=== PATIENT | female | born 1985 | race Caucasian/White ===

== ENCOUNTER 2018-01-19 17:14 | Emergency (ER) | payer OTHER ==
[2018-01-19 17:26] VITALS: TEMP 99; O2SAT 100
--- NOTE | 2018-01-19 18:12 | C.PDOC ---
History Of Present Illness 32 y/o female presents to the ED complaining of intermittent palpitations since yesterday. She started taking Protonix 2 days ago for reflux, and states she began to feel her heart race shortly after. The symptoms would come and go spontaneously the first day. This morning, symptoms had improved so patient took Protonix again around 2:00pm, and states her heart rate has been elevated since, prompting her to come in to the ED. Otherwise patient denies any CP, SOB , [place], dizziness, headaches, blurred/double vision, or other associated symptoms. Patient reports PMHx of anxiety and admits to having prior episodes of palpitations whenever she is feeling anxious. Time Seen by Provider: 01/19/18 17:42 Chief Complaint (Nursing): Palpitations History Per: Patient History/Exam Limitations: no limitations Onset/Duration Of Symptoms: Intermittent Episodes Current Symptoms Are (Timing): Still Present Quality Of Symptoms: Rapid Heart Rate Exacerbating Factor(s): Pos: Recent Change In Medication Past Medical History Reviewed: Historical Data, Nursing Documentation, Vital Signs Vital Signs: Last Vital Signs Temp 99 F 01/19/18 17:19 Pulse 130 H 01/19/18 19:26 Resp 18 01/19/18 19:26 BP 129/82 01/19/18 19:26 Pulse Ox 100 01/19/18 19:26 - Medical History PMH: GERD Family History: States: No Known Family Hx - Social History Hx Tobacco Use: No Hx Alcohol Use: No Hx Substance Use: No - Immunization History Hx Tetanus Toxoid Vaccination: No Hx Influenza Vaccination: No Hx Pneumococcal Vaccination: No Review Of Systems Except As Marked, All Systems Reviewed And Found Negative. Constitutional: Negative for: Fever Eyes: Negative for: Vision Change Cardiovascular: Positive for: Palpitations. Negative for: Chest Pain Respiratory: Negative for: Shortness of Breath, SOB with Excertion Gastrointestinal: Positive for: Vomiting (reflux exacerbation). Negative for: Abdominal Pain, Diarrhea Neurological: Negative for: Weakness, Numbness, Incoordination, Change in Speech , Headache, Dizziness Physical Exam - Physical Exam Appears: Non-toxic, No Acute Distress Skin: Normal Color, Warm, Dry Head: Atraumatic, Normacephalic Eye(s): bilateral: Normal Inspection, PERRL, EOMI Nose: Normal Oral Mucosa: Moist Neck: Normal ROM, Supple Chest: Symmetrical Cardiovascular: Rhythm Regular (and tachycardic), No Murmur Respiratory: Normal Breath Sounds, No Accessory Muscle Use, No Wheezing, Other ( NARD) Gastrointestinal/Abdominal: Soft, No Tenderness, No Distention Extremity: Bilateral: Atraumatic, Normal Color And Temperature, Normal ROM Pulses: Left Radial: Normal, Right Radial: Normal Neurological/Psych: Oriented x3, Normal Speech, Normal Cranial Nerves Gait: Steady ED Course And Treatment - Laboratory Results Result Diagrams: 01/19/18 18:27 01/19/18 18:27 ECG: Interpreted By Me ECG Rhythm: Sinus Tachycardia ECG Interpretation: Abnormal Rate From EC O2 Sat by Pulse Oximetry: 100 (RA) Pulse Ox Interpretation: Normal Medical Decision Making Medical Decision Making: Impression: Palpitations, Recent med change Initial Plan: --EKG --Troponin I --Thyroid panel --CMP --CBC --D dimer --Urine preg --Chest X-Ray --IV fluids Disposition Counseled Patient/Family Regarding: Studies Performed, Diagnosis, Need For Followup - Disposition Referrals: YOUR,PMD [Other] Disposition: HOME/ ROUTINE Disposition Time: 19:43 Condition: GOOD Instructions: Sinus Tachycardia (DC) Forms: [employer] (Russian) - Clinical Impression Clinical Impression: Sinus tachycardia, Elevated serum free T4 level - Scribe Statement The provider has reviewed the documentation as recorded by the Sandhyaibviktoriya Kamara Provider Attestation: All medical record entries made by the Scribe were at my direction and personally dictated by me. I have reviewed the chart and agree that the record accurately reflects my personal performance of the history, physical exam, medical decision making, and the department course for this patient. I have also personally directed, reviewed, and agree with the discharge instructions and disposition.
[2018-01-19] MEDS ORDERED: Sodium Chloride 0.9% 1,000 ML IV ONE (18:13)
[2018-01-19] MEDS ORDERED: Sodium Chloride 0.9% 1,000 ML ONE (18:32)
[2018-01-19 18:34] LABS: BASO % 0.3 % (0.0-2.0); EOS % 0.3 % (0.0-4.0); HEMOGLOBIN 12.3 g/dL (11.0-16.0); LYMPH # 0.6 K/uL (1.0-4.3); LYMPH % 13.8 % (20.0-40.0); MEAN CELL VOLUME 86.6 fL (81.0-99.0); MEAN CORPUSCULAR HEMOGLOBIN 28.7 pg (27.0-31.0); MEAN CORPUSCULAR HGB CONC 33.1 g/dL (33.0-37.0); MEAN PLATELET VOLUME 11.6 fL (7.2-11.7); MONO # 0.2 K/uL (0.0-0.8); MONO % 5.2 % (0.0-10.0); NEUT # 3.7 K/uL (1.8-7.0); NEUT % 80.4 % (50.0-75.0); NRBC % 0.1 % (0.0-2.0); RBC 4.27 Mil/uL (3.80-5.20); RED CELL DISTRIBUTION WIDTH 13.6 % (11.5-14.5); WHITE BLOOD COUNT 4.6 K/uL (4.8-10.8)
[2018-01-19 18:53] LABS: ALB/GLOB RATIO 1.5 (1.0-2.1); ALBUMIN 4.7 g/dL (3.5-5.0); ALT/SGPT 20 U/L (9-52); AST/SGOT 19 U/L (14-36); BLOOD UREA NITROGEN 11 mg/dL (7-17); CALCIUM 9.8 mg/dl (8.6-10.4); GFR NON-AFRICAN AMERICAN > 60
[2018-01-19 19:03] LABS: T3 UPTAKE 29.2 % (23.0-41.0); T4 13.7 ug/dL (5.5-11.0)
[2018-01-19 19:27] VITALS: BP 129/82; PULSE 130; RESP 18
--- NOTE | 2018-01-20 10:14 | RAD ---
Date of service: 01/19/2018 HISTORY: Palpations COMPARISON: No prior. TECHNIQUE: Chest PA and lateral FINDINGS: LUNGS: No acute infiltrates bilaterally. Limited granulomatous changes are questioned at the bilateral apices. PLEURA: No significant pleural effusion identified. No pneumothorax apparent. CARDIOVASCULAR: Normal. OSSEOUS STRUCTURES: No significant abnormalities. VISUALIZED UPPER ABDOMEN: Normal. OTHER FINDINGS: None. IMPRESSION: No acute cardiopulmonary is appreciable. Limited granulomatous changes questioned bilateral apices.
--- NOTE | 2018-01-21 09:16 | CARD ---
APPROVED REPORT Date of service: 01/19/2018 EKG Measurement Heart [id number] <Conclusion> Sinus tachycardia Septal infarct, age undetermined prolonged QTc Abnormal ECG
== END 2018-01-19 19:55 | disposition home or self-care (01) ==
LOC: C.ER 17:14
DX: R00.0 Tachycardia, unspecified (principal); R74.8 Abnormal levels of other serum enzymes
CPT/HCPCS: 71046; 80053; 84436; 84443; 84479; 84484; 84703; 85025; 85378; 93005; 94770; 96360; 99284; J7030